=== PATIENT | male | born 1955 | race Caucasian/White ===

== ENCOUNTER 2021-02-07 09:30 | Observation (INO) | payer MEDICARE ==
[~2021-02-07] VITALS: Ht 170.2 cm; Wt 77.3 kg
[~2021-02-07 09:30] MED LIST: ALDACTONE25 MG PO; AMIODARONE HCL200 MG PO; ASPIR-LOW81 MG PO; ASPIRIN EC81 MG PO; CYCLOBENZAPRINE5 MG PO; ELIQUIS 5 MG TAB5 MG PO; FOLIC ACID 1 MG1 MG PO; FUROSEMIDE40 MG PO; LEVAQUIN500 MG PO; LISINOPRIL5 MG PO; LOPRESSOR 25 MG25 MG PO; NITROGLYCERIN0.4 MG SL; PERCOCET 5-3251 EACH PO; POTASSIUM CHLO10 MEQ PO; PREDNISONE20 MG PO; TYLENOL WITH C1 EACH PO; VITAMIN B-1100 M1 PO
[2021-02-07 10:09] LABS: HEMOGLOBIN 15.4 gm/dl (14.0-17.5); RED BLOOD COUNT 4.29 M/UL (4.20-5.50); WHITE BLOOD COUNT 7.6 K/UL (4.5-11.0)
[2021-02-07 11:08] LABS: BUN/CREATININE RATIO 8 (0-10)
[2021-02-08 04:32] LABS: RED BLOOD COUNT 4.12 M/UL (4.20-5.50); WHITE BLOOD COUNT 6.7 K/UL (4.5-11.0)
[2021-02-08 05:10] LABS: BUN/CREATININE RATIO 16 (0-10)
[2021-02-09 05:21] LABS: BUN/CREATININE RATIO 16 (0-10)
[2021-02-09] MEDS ORDERED: ELIQUIS 5 MG TAB5 MG PO (08:38)
[2021-02-09] MEDS ORDERED: NICOTINE PATCH1 EAC2 TOP (08:38)
[2021-02-09] MEDS ORDERED: LOPRESSOR 25 MG25 MG PO (08:38)
[2021-02-09] MEDS ORDERED: TAB-A-VITE TA400 MC1 PO (08:38)
[2021-02-09] MEDS ORDERED: ATORVASTATIN CA10 MG PO (08:38)
[2021-02-09] MEDS ORDERED: LISINOPRIL40 MG PO (08:38)
[2021-02-09] MEDS ORDERED: LASIX40 MG PO (08:38)
[2021-02-09] MEDS ORDERED: K-DUR TAB 20 M20 MEQ PO (08:38)
[2021-02-09] MEDS ORDERED: ECOTRIN81 MG PO (08:42)
== END 2021-02-09 12:24 | disposition home or self-care (01) ==
LOC: ER1 09:30 → CDU 12:11 → M/S 12:11 → CDU 12:12 → M/S 20:40
PROVIDERS: Emergency Medicine; Physician Assistant Medical; ADMIT Family Medicine
DX: I42.8 Other cardiomyopathies (principal); I11.0 Hypertensive heart disease with heart failure; I50.43 Acute on chronic combined systolic (congestive) and diastolic (congestive) heart failure; I27.20 Pulmonary hypertension, unspecified; K76.1 Chronic passive congestion of liver; F10.10 Alcohol abuse, uncomplicated; F17.210 Nicotine dependence, cigarettes, uncomplicated; I48.92 Unspecified atrial flutter; I25.10 Atherosclerotic heart disease of native coronary artery without angina pectoris; I48.0 Paroxysmal atrial fibrillation; I08.3 Combined rheumatic disorders of mitral, aortic and tricuspid valves; Z20.822 Contact with and (suspected) exposure to COVID-19; Z79.01 Long term (current) use of anticoagulants; Z79.82 Long term (current) use of aspirin; Z79.899 Other long term (current) drug therapy; Z95.810 Presence of automatic (implantable) cardiac defibrillator; Z91.19 Patient's noncompliance with other medical treatment and regimen
CPT/HCPCS: ECHO; 36415; 71045; 80053; 81001; 82550; 82553; 83735; 83874; 83880; 84100; 84484; 85025; 85027; 85610; 85730; 87040; 93005; 93306; 96365; 96375; 96376; 99285; G0378; J0696; J1940; U0002

== ENCOUNTER → 2021-04-02 | Outpatient (CLI) | payer MEDICARE ==
[~2021-04-02] MED LIST changes: +ATORVASTATIN CA10 MG PO; +ECOTRIN81 MG PO; +K-DUR TAB 20 M20 MEQ PO; +LASIX40 MG PO; +LISINOPRIL40 MG PO; +NICOTINE PATCH1 EAC2 TOP; +OMNICEF 300 MG300 MG PO; +TAB-A-VITE TA400 MC1 PO
== END ==
LOC: EXRD 07:53
DX: I73.9 Peripheral vascular disease, unspecified (principal); L53.9 Erythematous condition, unspecified; L81.9 Disorder of pigmentation, unspecified; R20.2 Paresthesia of skin
CPT/HCPCS: 93925

== ENCOUNTER 2021-04-12 09:04 | Emergency (ER) | payer MEDICARE ==
[~2021-04-12 09:04] MED LIST changes: -OMNICEF 300 MG300 MG PO
[2021-04-12 09:23] LABS: HEMOGLOBIN 15.9 gm/dl (14.0-17.5); RED BLOOD COUNT 4.49 M/UL (4.20-5.50); WHITE BLOOD COUNT 5.5 K/UL (4.5-11.0)
[2021-04-12 10:07] LABS: BUN/CREATININE RATIO 10 (0-10)
[2021-04-12] MEDS ORDERED: OMNICEF 300 MG300 MG PO (12:51)
== END 2021-04-12 14:37 | disposition home or self-care (01) ==
LOC: ER1 09:04
PROVIDERS: Physician Assistant
DX: F10.129 Alcohol abuse with intoxication, unspecified (principal); S01.81XA Laceration without foreign body of other part of head, initial encounter; S60.512A Abrasion of left hand, initial encounter; I10 Essential (primary) hypertension; J18.9 Pneumonia, unspecified organism; E87.1 Hypo-osmolality and hyponatremia; Z79.01 Long term (current) use of anticoagulants; F17.210 Nicotine dependence, cigarettes, uncomplicated; W01.0XXA Fall on same level from slipping, tripping and stumbling without subsequent striking against object, initial encounter; Y92.481 Parking lot as the place of occurrence of the external cause; Y90.8 Blood alcohol level of 240 mg/100 ml or more; Z23 Encounter for immunization
CPT/HCPCS: 70450; 71045; 72125; 80053; 80307; 81001; 82550; 82553; 83874; 84484; 85025; 90471; 90715; 93005; 99284; G0480; J7030

== ENCOUNTER → 2021-05-24 | Outpatient (CLI) | payer MEDICARE ==
[~2021-05-24] MED LIST changes: +OMNICEF 300 MG300 MG PO
== END ==
LOC: EXRD 10:45 → US 11:12
DX: R55 Syncope and collapse (principal); M54.5 Low back pain; M54.6 Pain in thoracic spine; E04.1 Nontoxic single thyroid nodule; M47.816 Spondylosis without myelopathy or radiculopathy, lumbar region
CPT/HCPCS: 72072; 72100; 93880

== ENCOUNTER 2021-06-21 16:43 | Inpatient (IN) | payer MEDICARE ==
[~2021-06-21] VITALS: Ht 170.2 cm; Wt 73.6 kg
[2021-06-21 17:25] LABS: HEMOGLOBIN 13.2 gm/dl (14.0-17.5); RED BLOOD COUNT 3.84 M/UL (4.20-5.50); WHITE BLOOD COUNT 6.2 K/UL (4.5-11.0)
[2021-06-21 17:50] LABS: BUN/CREATININE RATIO 6 (0-10)
[2021-06-22 04:23] LABS: HEMOGLOBIN 14.5 gm/dl (14.0-17.5); WHITE BLOOD COUNT 5.8 K/UL (4.5-11.0)
[2021-06-22 04:26] LABS: RED BLOOD COUNT 4.27 M/UL (4.20-5.50)
[2021-06-22 04:47] LABS: BUN/CREATININE RATIO 14 (0-10)
[2021-06-23 06:13] LABS: HEMOGLOBIN 13.9 gm/dl (14.0-17.5); RED BLOOD COUNT 4.08 M/UL (4.20-5.50)
[2021-06-23 06:30] LABS: WHITE BLOOD COUNT 7.7 K/UL (4.5-11.0)
[2021-06-23 06:33] LABS: BUN/CREATININE RATIO 32 (0-10)
[2021-06-24 04:57] LABS: BUN/CREATININE RATIO 66 (0-10)
[2021-06-24 16:15] LABS: HEMOGLOBIN 9.9 gm/dl (14.0-17.5)
--- NOTE | 2021-06-24 16:53 | NUR ---
CALLED TO GIVE REPORT AT THIS TIME DILAN STEPHENS WILL CALL ME BACK JUST GOT ONE FROM THE INTERVIEWING CLERK
[2021-06-24 19:11] LABS: ORGANISM ID Not indicated. (.); SPECIMEN SOURCE Urine (.); STREPTOCOCCUS PNEUMONIAE AG Negative (Negative)
[2021-06-24 23:25] LABS: HEMOGLOBIN 8.7 gm/dl (14.0-17.5)
[2021-06-25 03:55] LABS: HEMOGLOBIN 8.8 gm/dl (14.0-17.5); WHITE BLOOD COUNT 7.5 K/UL (4.5-11.0)
[2021-06-25 03:57] LABS: RED BLOOD COUNT 2.63 M/UL (4.20-5.50)
[2021-06-25 04:40] LABS: BUN/CREATININE RATIO 55 (0-10)
[2021-06-26 03:01] LABS: HEMOGLOBIN 7.7 gm/dl (14.0-17.5); RED BLOOD COUNT 2.26 M/UL (4.20-5.50); WHITE BLOOD COUNT 5.5 K/UL (4.5-11.0)
[2021-06-26 03:45] LABS: BUN/CREATININE RATIO 28 (0-10)
[2021-06-27 02:33] LABS: HEMOGLOBIN 9.1 gm/dl (14.0-17.5); WHITE BLOOD COUNT 4.8 K/UL (4.5-11.0)
[2021-06-27 02:44] LABS: RED BLOOD COUNT 2.72 M/UL (4.20-5.50)
[2021-06-27 02:56] LABS: BUN/CREATININE RATIO 20 (0-10)
--- NOTE | 2021-06-27 11:06 | NUR ---
ROOM AIR SAT OF 67%.
[2021-06-27] MEDS ORDERED: PROTONIX 40 MG40 M1 PO (11:10)
[2021-07-26] MEDS ORDERED: ELIQUIS5 MG PO (08:54)
[2021-07-26] MEDS ORDERED: ZESTRIL 40 MG T40 MG PO (08:54)
[2021-07-26] MEDS ORDERED: ONE-DAILY MULT1 EACH PO (08:56)
== END 2021-06-27 12:30 | disposition home or self-care (01) | DRG 291 ==
LOC: ER1 16:43 → MED SURG 4 22:19 → CDU 22:19 → PROG CARE 22:19 → MED SURG 4 23:44 → PROG CARE 06-24 17:45
PROVIDERS: Internal Medicine; Physician Assistant; ADMIT Internal Medicine
PROC: 30233N1 Transfusion of Nonautologous Red Blood Cells into Peripheral Vein, Percutaneous Approach (ICD-10-PCS; principal; 2021-06-26)
DX: I11.0 Hypertensive heart disease with heart failure (principal); J96.01 Acute respiratory failure with hypoxia; K26.4 Chronic or unspecified duodenal ulcer with hemorrhage; J15.9 Unspecified bacterial pneumonia; K29.81 Duodenitis with bleeding; E87.1 Hypo-osmolality and hyponatremia; J44.0 Chronic obstructive pulmonary disease with (acute) lower respiratory infection; D62 Acute posthemorrhagic anemia; I48.92 Unspecified atrial flutter; Z20.822 Contact with and (suspected) exposure to COVID-19; I50.23 Acute on chronic systolic (congestive) heart failure; I25.10 Atherosclerotic heart disease of native coronary artery without angina pectoris; I48.0 Paroxysmal atrial fibrillation; I08.1 Rheumatic disorders of both mitral and tricuspid valves; T50.2X5A Adverse effect of carbonic-anhydrase inhibitors, benzothiadiazides and other diuretics, initial encounter; J44.9 Chronic obstructive pulmonary disease, unspecified; I27.20 Pulmonary hypertension, unspecified; I42.0 Dilated cardiomyopathy; F17.210 Nicotine dependence, cigarettes, uncomplicated; I49.5 Sick sinus syndrome; Z95.810 Presence of automatic (implantable) cardiac defibrillator; Z79.01 Long term (current) use of anticoagulants; Z79.82 Long term (current) use of aspirin; Z79.899 Other long term (current) drug therapy; Z99.81 Dependence on supplemental oxygen; Z82.49 Family history of ischemic heart disease and other diseases of the circulatory system
CPT/HCPCS: 0240U; 36415; 36430; 71045; 80048; 80053; 82270; 82550; 82553; 83735; 83874; 83880; 84132; 84439; 84443; 84484; 85014; 85018; 85025; 85027; 86850; 86900; 86901; 86920; 87040; 87070; 87205; 87278; 87899; 93005; 94760; 96374; 99285; C9113; J0696; J1940; J2704; J3475; J7040; P9016; U0002

== ENCOUNTER → 2021-07-26 | Day surgery (SDC) | payer MEDICARE ==
[~2021-07-26] MED LIST changes: +ELIQUIS5 MG PO; +ONE-DAILY MULT1 EACH PO; +PROTONIX 40 MG40 M1 PO; +ZESTRIL 40 MG T40 MG PO
== END | disposition home or self-care (01) ==
LOC: OR 05:44
DX: Z12.11 Encounter for screening for malignant neoplasm of colon (principal); K26.9 Duodenal ulcer, unspecified as acute or chronic, without hemorrhage or perforation; I48.19 Other persistent atrial fibrillation; I48.0 Paroxysmal atrial fibrillation; I11.0 Hypertensive heart disease with heart failure; I50.22 Chronic systolic (congestive) heart failure; D50.0 Iron deficiency anemia secondary to blood loss (chronic); I25.10 Atherosclerotic heart disease of native coronary artery without angina pectoris; I42.0 Dilated cardiomyopathy; M51.36 Other intervertebral disc degeneration, lumbar region; M54.42 Lumbago with sciatica, left side; M54.41 Lumbago with sciatica, right side; F17.210 Nicotine dependence, cigarettes, uncomplicated; Z79.01 Long term (current) use of anticoagulants; Z79.82 Long term (current) use of aspirin; Z79.899 Other long term (current) drug therapy; Z20.822 Contact with and (suspected) exposure to COVID-19; Z95.810 Presence of automatic (implantable) cardiac defibrillator
CPT/HCPCS: J2704; J7030

== ENCOUNTER 2022-01-11 17:30 | Emergency (ER) | payer OTHER ==
[2022-01-11 19:34] LABS: HEMOGLOBIN 9.2 gm/dl (14.0-17.5); RED BLOOD COUNT 3.72 M/UL (4.20-5.50); WHITE BLOOD COUNT 5.8 K/UL (4.5-11.0)
[2022-01-11 20:05] LABS: BUN/CREATININE RATIO 23 (0-10)
== END 2022-01-11 23:30 | disposition home or self-care (01) ==
LOC: ER1 17:30
PROVIDERS: Family Medicine
DX: I11.0 Hypertensive heart disease with heart failure (principal); I50.22 Chronic systolic (congestive) heart failure; I43 Cardiomyopathy in diseases classified elsewhere; J44.9 Chronic obstructive pulmonary disease, unspecified; I48.0 Paroxysmal atrial fibrillation; D64.9 Anemia, unspecified; F10.10 Alcohol abuse, uncomplicated; Z20.822 Contact with and (suspected) exposure to COVID-19; Z79.01 Long term (current) use of anticoagulants; F17.210 Nicotine dependence, cigarettes, uncomplicated; Z95.0 Presence of cardiac pacemaker; Z99.81 Dependence on supplemental oxygen; V49.40XA Driver injured in collision with unspecified motor vehicles in traffic accident, initial encounter; Y92.410 Unspecified street and highway as the place of occurrence of the external cause
CPT/HCPCS: 36415; 36600; 71045; 80053; 82550; 82553; 82803; 83605; 83874; 83880; 84484; 85025; 93005; 99285; U0002

== ENCOUNTER 2022-01-17 14:58 | Emergency (ER) | payer MEDICARE ==
[2022-01-17 16:06] LABS: HEMOGLOBIN 9.6 gm/dl (14.0-17.5); RED BLOOD COUNT 3.89 M/UL (4.20-5.50); WHITE BLOOD COUNT 6.3 K/UL (4.5-11.0)
[2022-01-17 17:33] LABS: BUN/CREATININE RATIO 20 (0-10)
[2022-01-17] MEDS ORDERED: ULTRAM50 MG PO (18:20)
== END 2022-01-17 19:15 | disposition home or self-care (01) ==
LOC: ER1 14:58
PROVIDERS: Emergency Medicine
DX: S20.212A Contusion of left front wall of thorax, initial encounter (principal); V49.40XA Driver injured in collision with unspecified motor vehicles in traffic accident, initial encounter; Y92.410 Unspecified street and highway as the place of occurrence of the external cause
CPT/HCPCS: 80053; 85025; 99284; Q9967

== ENCOUNTER 2022-01-24 12:58 | Inpatient (IN) | payer MEDICARE ==
[~2022-01-24] VITALS: Ht 170.2 cm; Wt 94.4 kg
[~2022-01-24 12:58] MED LIST changes: +ULTRAM50 MG PO
[2022-01-24 14:30] LABS: HEMOGLOBIN 10.6 gm/dl (14.0-17.5); RED BLOOD COUNT 4.29 M/UL (4.20-5.50); WHITE BLOOD COUNT 6.5 K/UL (4.5-11.0)
[2022-01-24 14:40] LABS: BUN/CREATININE RATIO 12 (0-10)
[2022-01-24] MEDS ORDERED: ASPIRIN EC81 MG PO (18:38)
[2022-01-24] MEDS ORDERED: ATORVASTATIN CA10 MG PO (18:38)
[2022-01-24] MEDS ORDERED: METOPROLOL TART25 MG PO (18:39)
[2022-01-24] MEDS ORDERED: POTASSIUM CHLO20 ME1 PO (18:39)
[2022-01-24] MEDS ORDERED: FUROSEMIDE40 MG PO (18:39)
[2022-01-24] MEDS ORDERED: ULTRAM50 MG PO (18:40)
[2022-01-24 23:54] LABS: BUN/CREATININE RATIO 15 (0-10)
[2022-01-25 04:46] LABS: HEMOGLOBIN 8.7 gm/dl (14.0-17.5); WHITE BLOOD COUNT 6.4 K/UL (4.5-11.0)
[2022-01-25 04:49] LABS: RED BLOOD COUNT 3.56 M/UL (4.20-5.50)
[2022-01-25 05:30] LABS: BUN/CREATININE RATIO 15 (0-10)
[2022-01-25 10:48] LABS: BUN/CREATININE RATIO 16 (0-10)
[2022-01-25 16:43] LABS: BUN/CREATININE RATIO 17 (0-10)
[2022-01-27 04:27] LABS: HEMOGLOBIN 8.9 gm/dl (14.0-17.5); RED BLOOD COUNT 3.76 M/UL (4.20-5.50)
[2022-01-27 04:31] LABS: WHITE BLOOD COUNT 8.1 K/UL (4.5-11.0)
[2022-01-27] MEDS ORDERED: BUDESONIDE0.5 MG/2 M NEB (08:44)
[2022-01-27] MEDS ORDERED: PROTONIX 40 MG40 M1 PO (08:44)
[2022-01-27] MEDS ORDERED: TOPROL XL 100100 MG PO (08:44)
[2022-01-27] MEDS ORDERED: VITAMIN B-1100 M1 PO (08:44)
[2022-01-27] MEDS ORDERED: COZAAR 25MG TAB25 MG PO (08:44)
[2022-01-27] MEDS ORDERED: LEVALBUTER0.63 MG/3 NEB (08:44)
[2022-01-27] MEDS ORDERED: LASIX40 MG PO (08:44)
[2022-01-27] MEDS ORDERED: FERROUS SULFAT325 MG PO (08:44)
[2022-01-27] MEDS ORDERED: TAB-A-VITE TA400 MC1 PO (08:44)
[2022-01-27] MEDS ORDERED: IPRATROPIU0.2 MG/1 M NEB (08:44)
[2022-01-27] MEDS ORDERED: ELIQUIS5 MG PO (09:02)
[2022-01-27] MEDS ORDERED: DOXYCYCLINE HY100 MG PO (09:02)
== END 2022-01-27 13:31 | disposition home or self-care (01) | DRG 291 ==
LOC: ER1 12:58 → CDU 17:57 → PROG CARE 17:57
PROVIDERS: Physician Assistant; Physician Assistant Medical; ADMIT Internal Medicine
DX: I11.0 Hypertensive heart disease with heart failure (principal); I50.23 Acute on chronic systolic (congestive) heart failure; E87.1 Hypo-osmolality and hyponatremia; E87.2 Acidosis; Z20.822 Contact with and (suspected) exposure to COVID-19; N17.9 Acute kidney failure, unspecified; I25.10 Atherosclerotic heart disease of native coronary artery without angina pectoris; I34.0 Nonrheumatic mitral (valve) insufficiency; J44.9 Chronic obstructive pulmonary disease, unspecified; F17.210 Nicotine dependence, cigarettes, uncomplicated; I42.8 Other cardiomyopathies; I48.91 Unspecified atrial fibrillation; E87.70 Fluid overload, unspecified; F10.129 Alcohol abuse with intoxication, unspecified; E66.9 Obesity, unspecified; I27.20 Pulmonary hypertension, unspecified; E78.5 Hyperlipidemia, unspecified; D50.9 Iron deficiency anemia, unspecified; I42.0 Dilated cardiomyopathy; F10.10 Alcohol abuse, uncomplicated; R73.9 Hyperglycemia, unspecified; Z79.01 Long term (current) use of anticoagulants; Z91.14 Patient's other noncompliance with medication regimen; Z95.810 Presence of automatic (implantable) cardiac defibrillator; Z95.5 Presence of coronary angioplasty implant and graft; Z86.73 Personal history of transient ischemic attack (TIA), and cerebral infarction without residual deficits; Z87.19 Personal history of other diseases of the digestive system; Z79.82 Long term (current) use of aspirin; Z68.32 Body mass index [BMI] 32.0-32.9, adult
CPT/HCPCS: 36415; 36600; 71045; 80048; 80053; 81001; 82436; 82550; 82553; 82570; 82607; 82746; 82803; 83540; 83550; 83605; 83735; 83880; 83930; 83935; 84133; 84156; 84300; 84439; 84443; 84484; 85025; 85610; 86140; 93005; 94640; 94664; 94760; 96374; 96375; 99285; G0480; J1756; J1940; J2060; J3411; U0002

== ENCOUNTER → 2022-01-29 | Outpatient (CLI) | payer MEDICARE ==
[~2022-01-29] MED LIST changes: +BUDESONIDE0.5 MG/2 M NEB; +COZAAR 25MG TAB25 MG PO; +DOXYCYCLINE HY100 MG PO; +FERROUS SULFAT325 MG PO; +IPRATROPIU0.2 MG/1 M NEB; +LEVALBUTER0.63 MG/3 NEB; +METOPROLOL TART25 MG PO; +POTASSIUM CHLO20 ME1 PO; +TOPROL XL 100100 MG PO
[2022-01-29 14:15] LABS: BUN/CREATININE RATIO 23 (0-10)
== END ==
LOC: LAB 12:28
PROVIDERS: Internal Medicine
DX: N17.9 Acute kidney failure, unspecified (principal)
CPT/HCPCS: 36415; 80048

== ENCOUNTER 2022-03-13 18:57 | Emergency (ER) | payer MEDICARE ==
[2022-03-13 19:58] LABS: HEMOGLOBIN 11.6 gm/dl (14.0-17.5); RED BLOOD COUNT 4.2 M/UL (4.20-5.50); WHITE BLOOD COUNT 6.8 K/UL (4.5-11.0)
[2022-03-13 20:28] LABS: BUN/CREATININE RATIO 15 (0-10)
== END 2022-03-14 09:27 | disposition home or self-care (01) ==
LOC: ER1 18:57
PROVIDERS: Physician Assistant
DX: S01.311A Laceration without foreign body of right ear, initial encounter (principal); Z23 Encounter for immunization; F10.129 Alcohol abuse with intoxication, unspecified; I11.0 Hypertensive heart disease with heart failure; I50.9 Heart failure, unspecified; I48.91 Unspecified atrial fibrillation; J44.9 Chronic obstructive pulmonary disease, unspecified; F17.210 Nicotine dependence, cigarettes, uncomplicated; W19.XXXA Unspecified fall, initial encounter
CPT/HCPCS: 12011; 36600; 70450; 71045; 72125; 80053; 82550; 82553; 82803; 84484; 85025; 90471; 90715; 93005; 99284; G0480

== ENCOUNTER 2022-03-19 18:27 | Inpatient (IN) | payer MEDICARE ==
[~2022-03-19] VITALS: Ht 170.2 cm; Wt 82.6 kg
[2022-03-19 19:53] LABS: HEMOGLOBIN 11.6 gm/dl (14.0-17.5); RED BLOOD COUNT 4.21 M/UL (4.20-5.50); WHITE BLOOD COUNT 6.7 K/UL (4.5-11.0)
[2022-03-19 20:15] LABS: BUN/CREATININE RATIO 19 (0-10)
[2022-03-20 06:13] LABS: BUN/CREATININE RATIO 21 (0-10)
[2022-03-20 06:21] LABS: HEMOGLOBIN 11.3 gm/dl (14.0-17.5); RED BLOOD COUNT 4.11 M/UL (4.20-5.50)
[2022-03-20 06:38] LABS: WHITE BLOOD COUNT 4.3 K/UL (4.5-11.0)
[2022-03-20] MEDS ORDERED: ENTRESTO 24 MG1 EACH PO (14:04)
[2022-03-21 02:02] LABS: BUN/CREATININE RATIO 20 (0-10)
[2022-03-22 02:03] LABS: BUN/CREATININE RATIO 24 (0-10)
[2022-03-23 01:45] LABS: BUN/CREATININE RATIO 31 (0-10)
[2022-03-24 04:53] LABS: BUN/CREATININE RATIO 32 (0-10)
[2022-03-25 02:12] LABS: RED BLOOD COUNT 4.72 M/UL (4.20-5.50); WHITE BLOOD COUNT 10.7 K/UL (4.5-11.0)
[2022-03-25 04:28] LABS: BUN/CREATININE RATIO 37 (0-10)
[2022-03-26] MEDS ORDERED: METOPROLOL SUCC50 MG PO (09:46)
[2022-03-26] MEDS ORDERED: ENTRESTO 24 MG1 EACH PO (09:46)
[2022-03-26] MEDS ORDERED: LEVALBUTER0.63 MG/3 NEB (09:46)
[2022-03-26] MEDS ORDERED: NICOTINE PATCH1 EAC2 TD (09:46)
--- NOTE | 2022-03-26 11:49 | NUR ---
PATIENT ROOM AIR SAT 87%
== END 2022-03-26 12:10 | disposition home or self-care (01) | DRG 291 ==
LOC: ER1 18:27 → CDU 20:49 → PROG CARE 20:49
PROVIDERS: Internal Medicine; Internal Medicine Infectious Disease; Preventive Medicine Occupational Medicine; ADMIT Internal Medicine
DX: I11.0 Hypertensive heart disease with heart failure (principal); I50.23 Acute on chronic systolic (congestive) heart failure; Z20.822 Contact with and (suspected) exposure to COVID-19; J96.21 Acute and chronic respiratory failure with hypoxia; J44.0 Chronic obstructive pulmonary disease with (acute) lower respiratory infection; J44.1 Chronic obstructive pulmonary disease with (acute) exacerbation; E87.2 Acidosis; I48.20 Chronic atrial fibrillation, unspecified; E87.1 Hypo-osmolality and hyponatremia; D68.32 Hemorrhagic disorder due to extrinsic circulating anticoagulants; I42.0 Dilated cardiomyopathy; I34.0 Nonrheumatic mitral (valve) insufficiency; D64.9 Anemia, unspecified; R31.9 Hematuria, unspecified; J20.9 Acute bronchitis, unspecified; I25.5 Ischemic cardiomyopathy; F17.210 Nicotine dependence, cigarettes, uncomplicated; I25.10 Atherosclerotic heart disease of native coronary artery without angina pectoris; F10.10 Alcohol abuse, uncomplicated; I48.0 Paroxysmal atrial fibrillation; Z79.01 Long term (current) use of anticoagulants; Z95.810 Presence of automatic (implantable) cardiac defibrillator; Z86.73 Personal history of transient ischemic attack (TIA), and cerebral infarction without residual deficits; Z99.81 Dependence on supplemental oxygen; Z91.14 Patient's other noncompliance with medication regimen; Z98.890 Other specified postprocedural states; Z82.49 Family history of ischemic heart disease and other diseases of the circulatory system
CPT/HCPCS: 0240U; 36415; 36600; 71045; 71046; 80048; 80053; 80307; 81001; 82009; 82140; 82550; 82553; 82803; 83605; 83690; 83735; 83880; 84100; 84484; 85025; 85652; 86140; 87077; 87086; 87186; 93005; 94640; 94664; 94760; 96374; 96375; 97116; 97116-GP-CQ; 97162; 97165; 97530; 97535; 99285; G0480; J1940; J2920; J3411; J3475; J7030

== ENCOUNTER 2022-05-14 11:32 | Inpatient (IN) | payer MEDICARE ==
[~2022-05-14] VITALS: Ht 170.2 cm; Wt 76.0 kg
[~2022-05-14 11:32] MED LIST changes: +ENTRESTO 24 MG1 EACH PO; +METOPROLOL SUCC50 MG PO; +NICOTINE PATCH1 EAC2 TD
[2022-05-14 20:12] LABS: HEMOGLOBIN 15.6 gm/dl (14.0-17.5); RED BLOOD COUNT 5.2 M/UL (4.20-5.50)
[2022-05-14 21:29] LABS: BUN/CREATININE RATIO 19 (0-10)
[2022-05-15 03:41] LABS: RED BLOOD COUNT 4.12 M/UL (4.20-5.50); WHITE BLOOD COUNT 6.1 K/UL (4.5-11.0)
[2022-05-15 03:42] LABS: HEMOGLOBIN 12.2 gm/dl (14.0-17.5)
[2022-05-15 04:32] LABS: BUN/CREATININE RATIO 19 (0-10)
[2022-05-15] MEDS ORDERED: LASIX40 MG PO (11:57)
[2022-05-15] MEDS ORDERED: ELIQUIS5 MG PO (16:18)
[2022-05-16 04:25] LABS: HEMOGLOBIN 11.8 gm/dl (14.0-17.5); RED BLOOD COUNT 4.03 M/UL (4.20-5.50); WHITE BLOOD COUNT 5.8 K/UL (4.5-11.0)
[2022-05-16 04:58] LABS: BUN/CREATININE RATIO 23 (0-10)
[2022-05-17] MEDS ORDERED: GABAPENTIN100 MG PO (14:47)
== END 2022-05-18 13:33 | disposition home or self-care (01) | DRG 291 ==
LOC: ER1 11:32 → PROG CARE 21:45 → CDU 21:45 → PROG CARE 05-15 15:03
PROVIDERS: Internal Medicine; Preventive Medicine Occupational Medicine; ADMIT Internal Medicine
DX: I11.0 Hypertensive heart disease with heart failure (principal); I50.23 Acute on chronic systolic (congestive) heart failure; J96.21 Acute and chronic respiratory failure with hypoxia; I48.20 Chronic atrial fibrillation, unspecified; I16.1 Hypertensive emergency; J44.1 Chronic obstructive pulmonary disease with (acute) exacerbation; J44.0 Chronic obstructive pulmonary disease with (acute) lower respiratory infection; E87.2 Acidosis; F17.200 Nicotine dependence, unspecified, uncomplicated; I42.8 Other cardiomyopathies; R20.0 Anesthesia of skin; D64.9 Anemia, unspecified; I25.82 Chronic total occlusion of coronary artery; D69.6 Thrombocytopenia, unspecified; I25.10 Atherosclerotic heart disease of native coronary artery without angina pectoris; I27.21 Secondary pulmonary arterial hypertension; E87.6 Hypokalemia; Z82.49 Family history of ischemic heart disease and other diseases of the circulatory system; Z95.1 Presence of aortocoronary bypass graft; Z87.11 Personal history of peptic ulcer disease; Z98.890 Other specified postprocedural states; Z79.01 Long term (current) use of anticoagulants; Z95.810 Presence of automatic (implantable) cardiac defibrillator; Z99.81 Dependence on supplemental oxygen
CPT/HCPCS: 71045; 80048; 80053; 81001; 82550; 82553; 82607; 83605; 83735; 83880; 84100; 84439; 84443; 84484; 84550; 85025; 85652; 86140; 87086; 93005; 93925; 94640; 94664; 94760; 96374; 96375; 97161; 99285; C9113; J1940

== ENCOUNTER 2022-06-16 13:00 | Inpatient (IN) | payer MEDICARE ==
[~2022-06-16] VITALS: Ht 170.2 cm; Wt 78.7 kg
[~2022-06-16 13:00] MED LIST changes: +GABAPENTIN100 MG PO
[2022-06-16 14:07] LABS: HEMOGLOBIN 12.8 gm/dl (14.0-17.5); RED BLOOD COUNT 4.12 M/UL (4.20-5.50); WHITE BLOOD COUNT 9.3 K/UL (4.5-11.0)
[2022-06-16 14:42] LABS: BUN/CREATININE RATIO 11 (0-10)
[2022-06-17 02:26] LABS: HEMOGLOBIN 11.5 gm/dl (14.0-17.5); RED BLOOD COUNT 3.72 M/UL (4.20-5.50); WHITE BLOOD COUNT 8.4 K/UL (4.5-11.0)
[2022-06-17 02:45] LABS: BUN/CREATININE RATIO 16 (0-10)
[2022-06-18 02:34] LABS: HEMOGLOBIN 11.2 gm/dl (14.0-17.5); RED BLOOD COUNT 3.63 M/UL (4.20-5.50)
[2022-06-18 03:16] LABS: BUN/CREATININE RATIO 19 (0-10)
[2022-06-19 02:03] LABS: HEMOGLOBIN 11.5 gm/dl (14.0-17.5); RED BLOOD COUNT 3.71 M/UL (4.20-5.50); WHITE BLOOD COUNT 8.4 K/UL (4.5-11.0)
[2022-06-19 02:25] LABS: BUN/CREATININE RATIO 19 (0-10)
[2022-06-20 01:50] LABS: HEMOGLOBIN 11.8 gm/dl (14.0-17.5); RED BLOOD COUNT 3.78 M/UL (4.20-5.50)
[2022-06-20 01:54] LABS: WHITE BLOOD COUNT 6.2 K/UL (4.5-11.0)
[2022-06-20 02:29] LABS: BUN/CREATININE RATIO 28 (0-10)
[2022-06-21 02:03] LABS: HEMOGLOBIN 10.8 gm/dl (14.0-17.5); RED BLOOD COUNT 3.47 M/UL (4.20-5.50); WHITE BLOOD COUNT 5.5 K/UL (4.5-11.0)
[2022-06-21 02:34] LABS: BUN/CREATININE RATIO 24 (0-10)
[2022-06-21] MEDS ORDERED: FUROSEMIDE20 MG PO (08:56)
[2022-06-21] MEDS ORDERED: DIGOXIN125 MCG PO (08:56)
[2022-06-21] MEDS ORDERED: LOPRESSOR 25 MG25 MG PO (08:56)
[2022-06-21] MEDS ORDERED: OMNICEF 300 MG300 MG PO (08:56)
[2022-06-21] MEDS ORDERED: FLAGYL 250 MG250 MG PO (08:56)
== END 2022-06-21 10:16 | disposition home or self-care (01) | DRG 177 ==
LOC: ER1 13:00 → PROG CARE 16:19 → CDU 16:19 → PROG CARE 21:30
PROVIDERS: Emergency Medicine; Internal Medicine; Physician Assistant; ADMIT Internal Medicine
DX: J69.0 Pneumonitis due to inhalation of food and vomit (principal); I50.23 Acute on chronic systolic (congestive) heart failure; Z20.822 Contact with and (suspected) exposure to COVID-19; I42.8 Other cardiomyopathies; E87.1 Hypo-osmolality and hyponatremia; G93.49 Other encephalopathy; J96.11 Chronic respiratory failure with hypoxia; I48.21 Permanent atrial fibrillation; I42.0 Dilated cardiomyopathy; J44.9 Chronic obstructive pulmonary disease, unspecified; F17.210 Nicotine dependence, cigarettes, uncomplicated; D69.6 Thrombocytopenia, unspecified; I27.20 Pulmonary hypertension, unspecified; M79.605 Pain in left leg; E83.42 Hypomagnesemia; D50.9 Iron deficiency anemia, unspecified; M79.604 Pain in right leg; R41.0 Disorientation, unspecified; G89.29 Other chronic pain; I95.9 Hypotension, unspecified; F10.10 Alcohol abuse, uncomplicated; E87.6 Hypokalemia; G62.9 Polyneuropathy, unspecified; I10 Essential (primary) hypertension; I25.10 Atherosclerotic heart disease of native coronary artery without angina pectoris; E78.5 Hyperlipidemia, unspecified; Z79.01 Long term (current) use of anticoagulants; Z95.810 Presence of automatic (implantable) cardiac defibrillator; Z95.5 Presence of coronary angioplasty implant and graft; Z99.81 Dependence on supplemental oxygen; Z82.49 Family history of ischemic heart disease and other diseases of the circulatory system
CPT/HCPCS: 36415; 36600; 70450; 71045; 80048; 80053; 81001; 82140; 82550; 82553; 82803; 83605; 83735; 83880; 84484; 85025; 85027; 85610; 85730; 87040; 87086; 93005; 94640; 94664; 94760; 96374; 96375; 97161; 97165; 99285; J0692; J0696; J1630; J1940; J3475; U0002